=== PATIENT | male | born 1990 | race Caucasian/White ===

== ENCOUNTER → 2019-09-05 | Outpatient (REF) | payer OTHER ==
[2019-09-05 12:11] LABS: SEMEN APPEARANCE OPAQUE (OPAQUE); SEMEN VISCOSITY LIQUID (LIQUID); SEMEN VOLUME 4.2 ml (2.0-5.0)
[2019-09-05 12:12] LABS: SPERM CONCENTRATION 28.1 M/ml (>=15.0); WBC CONCENTRATION >1 M/ml (<=1 M/ml)
== END ==
LOC: M LAB REF 11:35
PROVIDERS: ATTEND Family Medicine
DX: Z31.41 Encounter for fertility testing (principal)

== ENCOUNTER 2021-06-13 10:46 | Emergency (ER) | payer OTHER ==
[~2021-06-13] VITALS: Ht 188 cm; Wt 109.1 kg
--- NOTE | 2021-06-13 11:42 | REP ---
INDICATION: CHEST PAIN. COMPARISON: None. TECHNIQUE: Single portable AP view of the chest was performed. FINDINGS: There is no acute infiltrate or pulmonary edema. Lungs are clear. The heart is not significantly enlarged. The mediastinal silhouette is unremarkable. The visualized osseous structures are intact. IMPRESSION: No acute pulmonary disease. <Electronically signed by Roderick Enriquez > 06/13/21 [id number]
[2021-06-13 11:53] LABS: BASO % 0.4 % (0.0-1.0); EOS % 0.8 % (0.0-3.0); HEMATOCRIT 45.3 % (42.0-52.0); LYMPH # 1.7 10^3/uL (1.5-5.0); LYMPH % 35.1 % (24.0-44.0); MEAN CORPUSCULAR HEMOGLOBIN 32.6 pg (27.0-33.0); MEAN CORPUSCULAR HGB CONC 35.3 g/dl (32.0-36.5); MEAN CORPUSCULAR VOLUME 92.3 fl (80.0-96.0); MONO # 0.4 10^3/uL (0.0-0.8); MONO % 7.7 % (2.0-8.0); NEUTROPHILS # 2.7 10^3/uL (1.5-8.5); NEUTROPHILS % 55.8 % (36.0-66.0); PLATELET COUNT, AUTOMATED 188 10^3/uL (150-450); RED BLOOD COUNT 4.91 10^6/uL (4.30-6.10); WHITE BLOOD COUNT 4.8 10^3/uL (4.0-10.0)
[2021-06-13 12:29] LABS: ALBUMIN 4.4 GM/DL (3.2-5.2); ALT/SGPT 17 U/L (12-78); BILIRUBIN,DIRECT 0.1 MG/DL (0.0-0.2); BILIRUBIN,TOTAL 0.4 MG/DL (0.2-1.0); BLOOD UREA NITROGEN 10 MG/DL (7-18); CALCIUM LEVEL 9.2 MG/DL (8.5-10.1); CARBON DIOXIDE LEVEL 29 MEQ/L (21-32); CHLORIDE LEVEL 106 MEQ/L (98-107); CK-MB VALUE MASS < 1.0 NG/ML (<3.6); CPK CREATINE PHOSPHOKINASE 142 U/L (39-308); CREATININE FOR GFR 1.03 MG/DL (0.70-1.30); GLOMERULAR FILTRATION RATE > 60.0 (>60); GLUCOSE, FASTING 98 MG/DL (70-100); LIPASE 187 U/L (73-393); POTASSIUM SERUM 4.1 MEQ/L (3.5-5.1); SODIUM LEVEL 140 MEQ/L (136-145); TOTAL PROTEIN 7.8 GM/DL (6.4-8.2); TROPONIN I < 0.02 NG/ML (< 0.10)
[2021-06-13 15:29] VITALS: BP 125/80
--- NOTE | 2021-06-14 00:14 | ECGEPIP ---
[facility] - ED Test Date: 2021-06-13 Pat Name: ROBLES MARTINEZ Department: Room: - Gender: Male Senior It Architect: manny : 1990 Requested By: CHERYL Paige PA-C Order Number: [id number] Reading MD: Carlito Fernandes Measurements Intervals [place] Rate: 56 P: 36 MO: 142 QRS: 74 QRSD: 98 T: 49 QT: 414 QTc: 399 Interpretive Statements Sinus bradycardia Early repolarization NONSPECIFIC T WAVE ABNORMALITY(S) NO PRIORS FOR COMPARISON Electronically Signed on 06-14-2021 0:13:51 EDT by Carlito Fernandes
== END 2021-06-13 15:30 | disposition home or self-care (01) ==
LOC: M ED 10:46
DX: R07.89 Other chest pain (principal); R00.1 Bradycardia, unspecified